=== PATIENT | male | born 1970 | race Caucasian/White ===

== ENCOUNTER → 2017-12-26 13:05 | Outpatient (CLI) | payer MEDICARE, SELFPAY ==
[2017-12-26 13:38] LABS: Hematocrit 47.7 % (40-54); Hemoglobin 16.8 g/dl (13.0-16.5); Mean Corp Hgb Conc 35.2 g/gl (32-36); Mean Corpuscular Hgb 32.1 pg (27.0-32.0); Mean Platelet Vol. 8.9 fl (6.2-12.0); Platelet Count 186 K/mm3 (150-450); RBC Distribution Width CV 12.7 % (11.6-14.6); RBC Distribution Width SD 42.1 fl (35.1-43.9); Red Blood Count 5.24 M/mm3 (4.6-6.2); White Blood Count 6.9 K/mm3 (4.4-11.0)
[2017-12-26 13:39] LABS: Scan Indicated on CBC? Y/N NO
[2017-12-26 13:56] LABS: Hemoglobin A1c 5.1 % (4.2-6.3)
[2017-12-26 14:02] LABS: ALB/GLOB Ratio 0.9 RATIO (0.9-2.4); AST(SGOT) 18 U/L (15-37); Alanine Aminotransfer ALT/SGPT 23 U/L (16-61); Alkaline Phosphatase 79 U/L (45-117); Anion Gap 6 (5-15); BUN 10 mg/dL (7-18); BUN/Creat Ratio 11.1 RATIO (10-20); Calcium,Total 8.8 mg/dL (8.5-10.1); Chloride 107 mmol/L (98-107); Cholesterol 270 mg/dL (200); EST Glomerular Filtration Rate 95 mL/min (>60); Est Glom Filt Rate - Afr Amer 115 mL/min (>60); Globulin 4.4 g/dL (2.2-4.2); Glucose 94 mg/dL (74-106); High Density Lipoprotein 57 mg/dL; Potassium 3.8 mmol/L (3.5-5.1); Prolactin 26.6 ng/mL; Protein, Total 8.4 g/dL (6.4-8.2); Sodium Level 138 mmol/L (136-145); Triglycerides 227 mg/dL; Very Low Density Lipoprotein 45 mg/dL (5-40)
[2017-12-26 14:13] LABS: Valproic Acid (Depakene) Level 11 ug/mL (50-100)
== END ==
PROVIDERS: Visit Provider Psychiatry & Neurology Psychiatry
DX: Z79.899 Other long term (current) drug therapy (principal)
CPT/HCPCS: 36415; 80053; 80061; 80164; 82140; 83036; 84146; 85027

== ENCOUNTER → 2018-06-27 12:23 | Outpatient (CLI) | payer MEDICARE, SELFPAY ==
[2018-06-27 13:01] LABS: Hematocrit 43.5 % (40-54); Hemoglobin 14.7 g/dl (13.0-16.5); Mean Corp Hgb Conc 33.8 g/gl (32-36); Mean Corpuscular Hgb 31.8 pg (27.0-32.0); Mean Corpuscular Volume 94.2 fL (80-94); Platelet Count 139 K/mm3 (150-450); RBC Distribution Width CV 12.7 % (11.6-14.6); RBC Distribution Width SD 42.7 fl (35.1-43.9); Red Blood Count 4.62 M/mm3 (4.6-6.2); White Blood Count 5.4 K/mm3 (4.4-11.0)
[2018-06-27 13:02] LABS: Scan Indicated on CBC? Y/N NO
[2018-06-27 13:22] LABS: Valproic Acid (Depakene) Level 138 ug/mL (50-100)
[2018-06-27 13:36] LABS: ALB/GLOB Ratio 0.9 RATIO (0.9-2.4); AST(SGOT) 15 U/L (15-37); Alanine Aminotransfer ALT/SGPT 18 U/L (16-61); Albumin, Serum 3.5 g/dL (3.2-5.0); Alkaline Phosphatase 66 U/L (45-117); Anion Gap 7 (5-15); BUN 12 mg/dL (7-18); BUN/Creat Ratio 15.4 RATIO (10-20); Calcium,Total 8.4 mg/dL (8.5-10.1); Chloride 106 mmol/L (98-107); Cholesterol 206 mg/dL (200); Creatinine, Serum 0.78 mg/dL (0.70-1.30); EST Glomerular Filtration Rate 112 mL/min (>60); Est Glom Filt Rate - Afr Amer 135 mL/min (>60); Globulin 3.9 g/dL (2.2-4.2); Glucose 90 mg/dL (74-106); High Density Lipoprotein 62 mg/dL; Potassium 3.7 mmol/L (3.5-5.1); Prolactin 41.8 ng/mL; Protein, Total 7.4 g/dL (6.4-8.2); Sodium Level 136 mmol/L (136-145); Thyroid Stim Hormone (TSH) 1.96 uIU/mL (0.358-3.74); Triglycerides 140 mg/dL; Very Low Density Lipoprotein 28 mg/dL (5-40); Vitamin B12 491 pg/mL (211-911); Vitamin D,25 Hydroxy 16.9 ng/mL (29.95-100.01)
[2018-06-27 14:04] LABS: Hemoglobin A1c 5.3 % (4.2-6.3)
== END ==
PROVIDERS: Referring Provider Psychiatry & Neurology Psychiatry; Visit Provider Psychiatry & Neurology Psychiatry
DX: Z79.899 Other long term (current) drug therapy (principal)
CPT/HCPCS: 36415; 80053; 80061; 80164; 82140; 82306; 82607; 83036; 84146; 84443; 85027

== ENCOUNTER → 2018-07-26 | Outpatient (CLI) | payer MEDICARE, SELFPAY ==
[2018-07-26 11:33] LABS: Valproic Acid (Depakene) Level 69 ug/mL (50-100)
== END | disposition home or self-care (01) ==
LOC: PAVLAB 10:42
PROVIDERS: Referring Provider Psychiatry & Neurology Psychiatry; Visit Provider Psychiatry & Neurology Psychiatry
DX: Z79.899 Other long term (current) drug therapy (principal)
CPT/HCPCS: 36415; 80164; 82140

== ENCOUNTER → 2019-02-08 | Outpatient (CLI) | payer MEDICARE, SELFPAY ==
[2019-02-08 13:33] LABS: Platelet Count 142 K/mm3 (150-450)
[2019-02-08 13:42] LABS: AST(SGOT) 9 U/L (15-37); Alanine Aminotransfer ALT/SGPT 13 U/L (16-61)
[2019-02-08 14:14] LABS: Valproic Acid (Depakene) Level 66 ug/mL (50-100)
== END | disposition home or self-care (01) ==
LOC: PAVLAB 12:55
PROVIDERS: Referring Provider Psychiatry & Neurology Psychiatry; Visit Provider Psychiatry & Neurology Psychiatry
DX: Z79.899 Other long term (current) drug therapy (principal)
CPT/HCPCS: 36415; 80164; 82140; 84450; 84460; 85049

== ENCOUNTER 2021-06-01 10:16 | Outpatient (CLI) | payer MEDICARE, SELFPAY ==
[2021-06-01 10:42] LABS: Platelet Count 130 K/mm3 (150-450)
[2021-06-01 10:58] LABS: Hemoglobin A1c 5.2 % (3.8-5.6)
[2021-06-01 11:06] LABS: AST(SGOT) 17 U/L (15-37); Alanine Aminotransfer ALT/SGPT 17 U/L (16-61); Cholesterol 210 mg/dL (200); High Density Lipoprotein 60 mg/dL; Prolactin 27.4 ng/mL; Triglycerides 76 mg/dL; Very Low Density Lipoprotein 15 mg/dL (5-40)
[2021-06-01 11:26] LABS: Valproic Acid (Depakene) Level 80 ug/mL (50-100)
== END 2021-06-01 23:59 | disposition home or self-care (01) ==
LOC: PAVLAB 10:18
PROVIDERS: Referring Provider Psychiatry & Neurology Psychiatry; Visit Provider Psychiatry & Neurology Psychiatry
DX: F19.10 Other psychoactive substance abuse, uncomplicated (principal); R53.83 Other fatigue; Z79.899 Other long term (current) drug therapy
CPT/HCPCS: 36415; 80061; 80164; 82140; 83036; 84146; 84450; 84460; 85049

== ENCOUNTER → 2022-05-03 | Outpatient (CLI) | payer MEDICARE, SELFPAY ==
[2022-05-03 14:36] LABS: Platelet Count 153 K/mm3 (150-450)
[2022-05-03 14:56] LABS: Ammonia < 10.0 umol/L (11-32)
[2022-05-03 15:01] LABS: Hemoglobin A1c 5.1 % (3.8-5.6)
[2022-05-03 15:11] LABS: Valproic Acid (Depakene) Level 110 ug/mL (50-100)
[2022-05-03 15:14] LABS: AST(SGOT) 18 U/L (15-37); Alanine Aminotransfer ALT/SGPT 20 U/L (16-61); Prolactin 14.5 ng/mL
== END | disposition home or self-care (01) ==
LOC: PAVLAB 14:11
PROVIDERS: Referring Provider Psychiatry & Neurology Psychiatry; Visit Provider Psychiatry & Neurology Psychiatry
DX: F19.10 Other psychoactive substance abuse, uncomplicated (principal); R53.83 Other fatigue; Z79.899 Other long term (current) drug therapy
CPT/HCPCS: 36415; 80164; 82140; 83036; 84146; 84450; 84460; 85049

== ENCOUNTER → 2023-03-29 | Outpatient (CLI) | payer MEDICARE, SELFPAY ==
[2023-03-29 14:49] LABS: Hematocrit 47.7 % (40-54); Hemoglobin 15.7 g/dL (13.0-16.5); Mean Corp Hgb Conc 32.9 g/dL (32-36); Mean Corpuscular Hgb 31.3 pg (27.0-32.0); Mean Corpuscular Volume 95.2 fL (80-94); Mean Platelet Vol. 8.6 fl (6.2-12.0); Platelet Count 158 K/mm3 (150-450); RBC Distribution Width CV 12.3 % (11.6-14.6); RBC Distribution Width SD 42.9 fl (35.1-43.9); Red Blood Count 5.01 M/mm3 (4.6-6.2); White Blood Count 8.1 K/mm3 (4.4-11.0)
[2023-03-29 15:08] LABS: ALB/GLOB Ratio 0.8 RATIO (0.9-2.4); AST(SGOT) 51 U/L (15-37); Alanine Aminotransfer ALT/SGPT 26 U/L (16-61); Albumin, Serum 3.1 g/dL (3.2-5.0); Alkaline Phosphatase 59 U/L (45-117); Anion Gap 5 (5-15); BUN 11 mg/dL (7-18); BUN/Creat Ratio 11.3 RATIO (10-20); Calcium,Total 8.3 mg/dL (8.5-10.1); Chloride 105 mmol/L (98-107); Cholesterol 185 mg/dL (200); Creatinine, Serum 0.98 mg/dL (0.70-1.30); EST Glomerular Filtration Rate 85 mL/min (>60); Est Glom Filt Rate - Afr Amer 102 mL/min (>60); Glucose 90 mg/dL (74-106); High Density Lipoprotein 62 mg/dL; Potassium 4.1 mmol/L (3.5-5.1); Protein, Total 7.1 g/dL (6.4-8.2); Sodium Level 136 mmol/L (136-145); Triglycerides 67 mg/dL; Very Low Density Lipoprotein 13 mg/dL (5-40)
[2023-03-29 15:13] LABS: Hemoglobin A1c 5.1 % (3.8-5.6); Valproic Acid (Depakene) Level 118 ug/mL (50-100)
[2023-03-29 15:21] LABS: Ammonia < 10.0 umol/L (11-32)
== END | disposition home or self-care (01) ==
LOC: PAVLAB 14:33
PROVIDERS: Referring Provider Psychiatry & Neurology Psychiatry; Visit Provider Psychiatry & Neurology Psychiatry
DX: F19.10 Other psychoactive substance abuse, uncomplicated (principal); R53.83 Other fatigue; Z79.899 Other long term (current) drug therapy
CPT/HCPCS: 36415; 80053; 80061; 80164; 82140; 83036; 84146; 85027

== ENCOUNTER 2023-04-19 10:47 | Emergency (ER) | payer MEDICARE, SELFPAY ==
[2023-04-19] VITALS (13 sets, daily range): BP systolic 112–169; BP diastolic 69–117; PULSE 73–120; RESP 14–22; TEMP 36.6; O2SAT 92–100; BMI 22.1
--- NOTE | 2023-04-19 10:59 | EX.ED.VIS.PS ---
HPI HPI - Psych History of Present Illness Chief Complaint: Mental Health Informant: patient and police/bath design sales consultant Onset/Context/Timing Onset: Days Context: Gradual Onset Timing: Continuous Current Severity: Severe Maximum Severity: Severe Associated Symptoms Associated Symptoms - Psych: Positive for Visual Hallucinations and Auditory Hallucinations Specific plan (suicidal thought): Not suicidal. Narrative Narrative: 53-year-old male brought in by the police. He is verbally abusive, yelling, threw a shoe at the deputy. Patient had to be put in leather restraints. He is yelling at me and flipping me off. Patient was an underlying psychiatric disorder and has been noncompliant with medications. Today he was in court and reportedly let go and the bath design sales consultant's department did not feel comfortable and let him on the street so they brought him into the emergency department. Prior similar symptoms: Yes Recent Illness/Hospitalization: No [facility] Medical History (Updated 04/19/23 @ 11:08 by Comfort Antonoi) Bipolar 1 disorder Allergy/AdvReac Type Severity Reaction Status Date / Time No Known Allergies Allergy Verified 04/19/23 10:48 Social History Smoking Status: Unknown if ever smoked ROS ROS ED ROS Narrative When asked that the patient has any medical problems he states I faked it . Denies any recent illness. Review of Systems ROS Unobtainable: due to mental condition; Denies due to encephalopathy Constitutional Constitutional ED: Denies chills or fever(s) Eyes Eyes: Denies blurry vision ENT ENT ED: Denies ear pain Cardiovascular Cardiovascular: Denies chest pain Respiratory/Chest Respiratory/Chest: Denies cough or dyspnea Gastrointestinal Gastrointestinal: Denies abdominal pain Genitourinary Genitourinary ED: Denies dysuria Musculoskeletal Musculoskeletal: Denies arthralgias Neurologic Neurologic: Denies headache(s) Psychiatric Psychiatric: Denies anxiety Endocrine Endocrinology: Denies polydipsia Hematologic/Lymphatic Hematologic/Lymphatic: Denies easy bleeding Allergic/Immunologic Allergic/Immunologic ED: Denies mouth swelling, tongue swelling or urticaria EXAM Physical Exam Narrative Exam Narrative: 53-year-old male verbally and physically combative. Currently restrained with 4 point leather restraints. Deputies in the room. HEENT exam no signs of trauma. Poor dentition. Pupils round reactive light. No signs of trauma to his face or scalp. Neck nontender. No signs of trauma. Trachea midline. Lungs clear to auscultation bilaterally. Heart regular rhythm rate about 95 no murmur. Chest wall and ribs nontender. Abdomen soft nontender. No bruising. Pelvic girdle intact. He is moving all 4 extremities. He is resisting the restraints. Mental he is awake and alert. He is yelling at me consistently. He has both verbally and physically abusive. Const Vital Signs: 04/19/23 10:49 04/19/23 11:45 04/19/23 12:38 Temperature 98 F Temperature Source Temporal Pulse Rate 98 106 H 73 Respiratory Rate 16 17 15 Blood Pressure 169/100 H 112/76 135/69 H Blood Pressure Mean 123 88 91 Pulse Ox 100 92 95 Oxygen Delivery Method Room Air Room Air Room Air 04/19/23 13:48 Temperature Temperature Source Pulse Rate 119 H Respiratory Rate 20 H Blood Pressure 159/92 H Blood Pressure Mean 114 Pulse Ox 96 Oxygen Delivery Method Room Air Positive well nourished and well developed; Negative for obese, cachectic, contractures or unkempt General Appearance ED: well developed; Negative for unkempt, cachectic, contractures, NAD or pallor Nutritional Appearance: Negative for cachectic or obese HEENT Reports moist mucous membranes normocephalic and atraumatic; Negative for trauma or tenderness Eyes PERRL and EOMs intact bilaterally General Eye ED: Negative for pale conjunctiva or scleral icterus Neck no lymphadenopathy, supple and no JVD General: Negative for tenderness Resp normal respiratory effort and clear to auscultation bilaterally Effort and Inspection: Negative for retractions Auscultation: Negative for rales, rhonchi or wheezes Cardio S1 normal heart sound, S2 normal heart sound and no murmurs Palpation: Negative for other Rate: regular rate Rhythm: regular rhythm GI non-tender and no masses Inspection: Negative for abdominal distention Auscultation: normoactive bowel sounds Palpation: soft; Negative for tender or guarding Back/Spine no CVA tenderness General Back: Negative for CVA tenderness Cervical Spine: Negative for cervical spine tenderness Thoracic Spine / Upper Back: Negative for thoracic spinal tenderness Lumbar Spine / Lower Back: Negative for lumbar spinal tenderness Coccyx: Negative for other Extremity normal to inspection General Extremety ED: Negative for edema or tenderness General Extremity: Negative for edema Neuro oriented x3, CN's II-XII intact bilaterally and no sensory deficits noted Neuro Narrative: Patient will only answer limited questions. Sensorium / Orientation: alert and oriented to person Motor Exam: strength 5/5 throughout Psych speech normal; Negative for mental status grossly normal, thought process normal, cooperative, affect normal or denies hallucinations Appearance: disheveled; Negative for unkempt Attitude: paranoid, uncooperative, belligerent, agitated, aggressive and hostile Activity / Motor Behavior: appropriate eye contact Speech: loud Mood & Affect: hostile affect Insight: poor Judgement: poor Skin General Skin Exam: Negative for jaundice or pallor Lesions: no lesions Rashes: no rashes Trauma: Negative for abrasion or laceration Wounds: Negative for amputation MDM MDM MDM Narrative Medical decision making narrative: 53-year-old male history of underlying psychiatric illness by appearance he seems to have paranoid schizophrenia but I do not have a confirmed diagnosis that. He is somewhat disheveled. He is verbally and physically aggressive and hostile. Currently he is in leather restraints. Be given Geodon. ED mental health evaluation and he will need to be hospitalized. Ángel exam at 1:10 PM patient is resting comfortably. He still in restraints. He has been given Geodon IM twice. Currently he is resting more comfortably and is more calm and relaxed. Patient was taken out of restraints he immediately became combative again security is currently in the room. He will be treated with IM Benadryl and IM Haldol. He had already received previously 2 dosages of Geodon over the last several hours. History & Record Review Discussion w/independent historian: Patient Additional record(s) reviewed:: No prior records Lab Data Attestation: I reviewed the patient's lab results. Lab results narrative: CBC normal. White count of 10. H&H 16 and 48. Platelets are slightly low at 142. Chemistries show sodium 134. Potassium of 5.4. Gap of 14. BUN of 26 creatinine 1.4. Glucose 72. Urine tox positive only for cannabis. Alcohol negative. COVID-negative. Labs: Laboratory Results - last 24 hr 04/19/23 04/19/23 04/19/23 11:00 11:13 12:30 WBC 10.0 RBC 5.26 Hgb 16.2 Hct 48.0 MCV 91.3 MCH 30.8 MCHC 33.8 RDW Std Deviation 41.6 RDW Coeff of Bernabe 12.5 Plt Count 142 L MPV 9.1 Immature Gran % (Auto) 0.500 Neut % (Auto) 57.3 Lymph % (Auto) 27.4 [place] % (Auto) 13.6 H Eos % (Auto) 0.5 Baso % (Auto) 0.7 Absolute Neuts (auto) 5.7 Absolute Lymphs (auto) 2.73 Nucleated RBC % 0 Sodium 134 L Potassium 5.4 H Chloride 101 Carbon Dioxide 19.0 L Anion Gap 14 BUN 26 H Creatinine 1.40 H Estim Creat Clear Calc 50.76 Est GFR (MDRD) Af Amer 68 Est GFR (MDRD) Non-Af 56 L BUN/Creatinine Ratio 18.6 Glucose 72 L Calcium 9.5 Urine Opiates Screen NEGATIVE Urine Methadone Screen NEGATIVE Ur Barbiturates Screen NEGATIVE Ur Phencyclidine Scrn NEGATIVE Ur Amphetamines Screen NEGATIVE MDMA (Ecstasy) Screen NEGATIVE U Benzodiazepines Scrn NEGATIVE Urine Cocaine Screen NEGATIVE U Cannabinoids Screen POSITIVE H Ur Drug Screen Comment Ethyl Alcohol < 3.0 POC Glucose 76 Discharge Plan Triage Chief Complaint: Mental Health ED Provider: Lucio Slater Dx/Rx/DC Orders Clinical Impression: Aggressive behavior, Acute paranoia, Acute exacerbation of psychosis Primary Care Provider: Care Physician,No Primary Referrals: Care Physician,No Primary [Primary Care Provider] - Disposition Disposition: Psychiatric Hospital or Unit
[2023-04-19] MEDS: Ziprasidone IM 20 MG/ML VIAL IM ×2 (11:03→12:19)
--- NOTE | 2023-04-19 11:04 | ED.RN ---
PT ARRIVES TO ED VIA [facility] DEPART[facility], PT SHOUTING. AT 1150, PT TAKES HIS SHOES OFF AND THROWS THEM AT THE MEDIC, PT SHOUTING AND CURSING AT STAFF, ATTEMPTING TO GRAB AT STAFF. PT ASSISTED BACK INTO BED BY SECURITY AND PLACED INTO FOUR POINT LOCKED RESTRAINTS. PT STATES, FUCK YOU, AHH LET ME SEE DR. ANNA. DR. ESPANA INFORMED.
[2023-04-19 11:14] LABS: Absolute Lymphocyte Count 2.73 X10^3/uL (0.83-4.51); Absolute Neutrophil Count 5.7 X10^3/uL (2.0-7.7); Basophil# 0.07 X10^3/uL; Basophil% 0.7 % (0-1); Eosinophil# 0.05 X10^3/uL; Eosinophils% 0.5 % (0-5); Hemoglobin 16.2 g/dL (13.0-16.5); Lymphocyte # 2.73 X10^3/ul (0.83-4.51); Lymphocyte % 27.4 % (19-41); Mean Corp Hgb Conc 33.8 g/dL (32-36); Mean Corpuscular Hgb 30.8 pg (27.0-32.0); Mean Corpuscular Volume 91.3 fL (80-94); Mean Platelet Vol. 9.1 fl (6.2-12.0); Monocyte# 1.36 X10^3/uL; Monocyte% 13.6 % (0-10); NRBC Flagged by Analyzer 0 % (0-5); Neutrophil # 5.71 X10^3/uL (2.7-7.7); Neutrophil % 57.3 % (47-70); Platelet Count 142 K/mm3 (150-450); RBC Distribution Width CV 12.5 % (11.6-14.6); RBC Distribution Width SD 41.6 fl (35.1-43.9); Red Blood Count 5.26 M/mm3 (4.6-6.2)
--- NOTE | 2023-04-19 11:24 | ED.RN ---
PT ARRIVES TO ED WITH [employer] DEPARTMENT. PT WITH IS SHOUTING NONSENSE, CURSING STAFFF. PT WITH VERBALLY AGGRESSIVE BEHAVIOR, STATING FUCK YOU, I NEED TO SEE DR. FERNÁNDEZ. AAHHHH. PT THROWS SHOES AT THE MEDIC, GETS OUT OF BED CHARGING AT STAFF. PT ASSISTED BACK INTO BED BY SECURITY. PT PLACED INTO FOUR POINT LOCKED RESTRAINTS OF BILATERAL ANKLES AND WRISTS.
[2023-04-19 11:27] LABS: Anion Gap 14 (5-15); BUN 26 mg/dL (7-18); BUN/Creat Ratio 18.6 RATIO (10-20); Calcium,Total 9.5 mg/dL (8.5-10.1); Chloride 101 mmol/L (98-107); EST Glomerular Filtration Rate 56 mL/min (>60); Est Glom Filt Rate - Afr Amer 68 mL/min (>60); Estimated Creatinine Clearance 50.76 ml/min; Glucose 72 mg/dL (74-106); Potassium 5.4 mmol/L (3.5-5.1); Sodium Level 134 mmol/L (136-145)
[2023-04-19 11:31] LABS: Bedside Glucose 76 mg/dL (74-106)
--- NOTE | 2023-04-19 11:39 | ED.RN ---
On arrival to department, patient placed in room 6 and was being combative towards staff. Patient placed in restraints and continued to be harmful towards self trying to get out of bed. Patient medicated with Geodon. Patient continues to state sexual innuendos towards staff and is not reasonable, continues to scream out and will not answer and questions staff asks of him. Patient was redirected and requested to not scream out and to not make sexual comments towards staff.
[2023-04-19 11:42] LABS: Alcohol, Blood (Medical)-Serum < 3.0 mg/dL
[2023-04-19 13:04] LABS: Amphetamine Urine VISTA NEGATIVE (<1000 ng/mL); Barbiturate Urine VISTA NEGATIVE (< 200 ng/mL); Benzodiazepine Urine VISTA NEGATIVE (< 200 ng/mL); Cocaine Urine VISTA NEGATIVE (< 300 ng/mL); Ecstacy Urine VISTA NEGATIVE (< 500 ng/mL); Methadone Urine VISTA NEGATIVE (< 300 ng/mL); PCP Urine VISTA NEGATIVE (< 25 ng/mL); THC Urine VISTA POSITIVE (< 50 ng/mL); Vista UDS pH Range 5
--- NOTE | 2023-04-19 13:30 | CM.ED ---
Social Work Psychiatric Assessment Reason for consult: Mental health Informant(s): Patient, medical record, Deliverer Outside Chief Complaint: Mental Health Marital/Social History/Living Situation: Patient is a 53-year-old male that presents with osman after a court hearing. Pt indicates he lives alone. Pt is a poor historian. History: Unknown Education and Employment History: Unknown Mental Health Treatment/History: Patient says he is ?bipolar.? Pt sees Dr. Grullon at [facility]. Last appt. in March with a history of schizoaffective disorder bipolar type. Hx of AVH, delusions and paranoia. Periodically medication noncompliant. Hx of injections and Depakote. Pt is a poor historian and further information is not known. Psychiatry notes had indicated prior psychiatric placements and mental health treatment history that began in 2007. Substance Abuse Hx: Patient reports use in the 80?s, positive for THC. Abuse Issues/Trauma HX: Unknown Risk to Self/Others: Patient has not voiced SI/HI but has made threats to medical staffing. Triggers/Stressors/Risk factors: Court case pending Coping Skills: Unknown Support/Resources: Unknown Mental Status Exam: ?Pt is oriented to self only. Appearance/General Behavior/Mood/Affect: Pt presents as disheveled. Pt is periodically aggressive physically and verbally. Pt has an agitated mood with congruent affect. Communication Pattern/Thought process: Pt is unable to communicate effectively or provide accurate information. Pt presents as delusional, paranoid and experiencing AVH. General Intellectual Functioning:?? Unknown Judgment/Insight: Pt presents with poor judgment and insight Assessment: Patient brought to ED by [facility] osman after being seen in court today and noticed mental health concerns. Pt was not detained in court but piece goods clerk observed erratic behaviors and pink-slipped patient to the ED due to their concerns. Pt arrives with verbal and physical aggression. Pt screaming, cussing, throwing items, and uncooperative with staff requests. Pt had to be placed in leather restraints. Pt restrained and continued to scream and curse. Pt was medically restrained with Geodon. Pt is a poor historian. Pt is a patient at [facility] and sees Dr. Mckoy. Pt has a history of schizoaffective bipolar type. Pt has AVH, delusions and paranoia. Pt was last seen in March and had reported being medication compliant. Pt did have an injection in August and reportedly is supposed to have an injection every 3 months. Further details of medications are unknown due to pt being a poor historian. Pt reports taking Depakote. Pt has no allergies according to the counseling center. Pt?s last known address is in [place]. Patient has no family information or contact information listed. Patient reports drug use in the 80?s and is positive for THC only. Patient does present as delusional. Pt reports he has twins with a news anchorwoman. Pt has flight of ideas, unable to answer questions appropriately, paranoia, AVH, medication noncompliance suspected, and is unable to care for himself at this time. Patient would benefit from inpatient psychiatric placement for stabilization, ED physician is in agreement. Plan: Patient referred for psychiatric placement. Alisson Mckeon HEAD PAPER TESTER, TIME LOCK EXPERT
--- NOTE | 2023-04-19 13:45 | ED.RN ---
PT GRABBED HIS CORDS AND YANKED THEM OFF TO THE P OINT HE PULLED THE MONITOR BOX OF ITS [place] AND TO THE FLOOR. THIS NURSE ATTEMPTED TO PLACE PT ON THE MONITOR WHEN HE TRIED TO KICK AT THIS NURSE. PT ASKED THIS NURSE TO CLOSE AND LOCK THE DOOR AND STARTED STATING THE FIRST RN HE WAS WITH.... PT WAS UNABLE TO BE REDIRECTED AND FOLLOW BASIC DIRECTIONS. PT YELLED AND CRIED THAT HE WANTED A CIGARETTE.
--- NOTE | 2023-04-19 14:42 | CM.ED ---
Social Work Patient referred to [facility] and [facility]. Both facilities are agreeable to take patient on condition of being out of restraints. [facility]'s policy is 4 hours out of physical restraints and 2 hours out of medical restraint. [facility] is 2 hours out of physical restraint and 1 hour out of medical restraint. Both facilities will hold patient's referral until patient is able to be unrestrained according to policy. Physician and nursing notified. Alisson Mckeon BIOGEOGRAPHER, SAIL FINISHER MACHINE
[2023-04-19] MEDS: LORazepam 1 MG Tablet PO (15:00)
[2023-04-19] MEDS: DiphenhydrAMINE 50 MG/ML Syringe 25 MG IM (15:26)
[2023-04-19] MEDS: Haloperidol Lactate 5 MG/ML Vial IM (15:26)
--- NOTE | 2023-04-19 15:43 | ED.RN ---
1450 Restraints removed. Patient agitated but cooperative.
--- NOTE | 2023-04-19 17:00 | CM.ED ---
Social Work SW spoke with [facility] and they are willing to accept patient. Pt accepted by Dr. Wiggins to intensive treatment unit. [facility] slip made out to [facility] and faxed, original to go with patient. Requesting nurse to nurse and eta. Per [facility], pt is able to have at the most 2mg of Ativan p.o. for transport. If patient needs restraints or more chemical restraint, arrival time will need extended. Alisson Mckeon FINANCIAL SERVICES REPRESENTATIVE, UNIX SYSTEM ADMINISTRATOR
--- NOTE | 2023-04-19 20:46 | ED.RN ---
CALLED PHYSICIANS AT 2034 REQUESTING AN UPDATED ETA, THEY GAVE 2-3 HOURS LONGER. PUTTING IT AT [phone]. PHYSICIANS DID NOT CALL BEFORE HAND WITH NEW ETA INFORMATION.
[2023-04-20 01:06] VITALS: BP 110/69; PULSE 85; RESP 15; TEMP 36.8; O2SAT 99
== END 2023-04-20 01:24 ==
PROVIDERS: Emergency Provider Emergency Medicine; Visit Provider Emergency Medicine
DX: F23 Brief psychotic disorder (principal); F22 Delusional disorders; F31.9 Bipolar disorder, unspecified
CPT/HCPCS: 80048; 80307; 80320; 82962; 85025; 87426; 96372; 99285; A4216; G0480; J3486